=== PATIENT | female | born 1970 | race American Indian/Alaskan Native ===

== ENCOUNTER 2019-08-15 16:08 | Outpatient (CLI) | payer BC ==
--- NOTE | 2019-08-19 09:01 | Mammography Report ---
DIGITAL SCREENING MAMMOGRAM WITH CAD, 08/15/2019 INDICATION: Routine screening mammography. TECHNIQUE: Digital bilateral 2D mammography was obtained in the craniocaudal and mediolateral obliq ue projections. This examination was interpreted with the benefit of Computer-Aided Detection analysi s. COMPARISON: None available. However, she indicated that she had a prior mammogram at either [facility]. FINDINGS: Breast Density: The breasts are heterogeneously dense, which may obscure small masses. Right asymmetries require comparison with the prior mammogram or additional imaging. There is no evid ence of dominant mass, suspicious calcifications or architectural distortion in the left breast. IMPRESSION: Comparison with the previous mammogram is recommended. We will attempt to obtain a prior mammogram for comparison. If we do not obtain a prior mammogram within 30 days, a revised report will be issued recommending a recall for additional imaging. Please be advised that the patient should no t schedule an appointment for return until adequate time (at least 2 weeks) has passed for us to obta in the prior mammogram. Follow up recommendation: Obtain prior study for comparison Category 0: Incomplete. Needs additional imaging evaluation and/or prior mammograms for comparison. A "normal" or negative report should not discourage follow up or biopsy of a clinically significant f inding. A written summary of these findings will be mailed to the patient. The patient will be entered into a mammography reporting system which will generate a reminder letter for the patient's next appointmen t at the appropriate interval. [employer] recommends yearly mammograms starting at age 40 and continuing as l trev as a woman is in good health. Breast MRI is recommended for women with an approximate 20-25% or greater lifetime risk of breast cancer, including women with a strong family history of breast or ova sarah cancer or who have been treated for Hodgkin's disease. Signer Name: Andrea Pittman MD Signed: 08/19/2019 8:57 AM Workstation Name: [id number]
== END 2019-08-15 16:09 | disposition home or self-care (01) ==
LOC: SPVWC 16:08
PROVIDERS: ATTEND Obstetrics & Gynecology
DX: Z12.31 Encounter for screening mammogram for malignant neoplasm of breast (principal)
CPT/HCPCS: 77067